=== PATIENT | female | born 1990 | race Caucasian/White ===

== ENCOUNTER 2019-07-09 14:20 | Emergency (ER) | payer SELFPAY ==
[~2019-07-09] VITALS: Ht 149.9 cm; Wt 45.4 kg
--- NOTE | 2019-07-09 14:20 | NUR ---
Pt walked in ER, pt requesting wound check of coccyx incesion site, for excess drainage and possible infection. Female front services agent accompanied female patient for (Dr Pastor).
[2019-07-09] MEDS ORDERED: NEOMY/BACITRA/POLYMYXIN B OINT UD PACKET TP ONE ×2 (14:56→15:00)
[2019-07-09] MEDS ORDERED: LIDOCAINE HCL 2% 20 ML VIAL TP ONE (15:00)
[2019-07-09 15:05] VITALS: BP 122/74
--- NOTE | 2019-07-09 15:07 | NUR ---
Patient discharged to home in stable conditon. Written and verbal after care instructions given. Patient verbalizes understanding of instructions. Pt left ER w/ steady gait.
== END 2019-07-09 15:08 | disposition home or self-care (01) ==
LOC: ER 14:20
PROC: 0HQ8XZZ Repair Buttock Skin, External Approach (ICD-10-PCS; principal; 2019-07-09)
DX: T81.31XA Disruption of external operation (surgical) wound, not elsewhere classified, initial encounter (principal)
CPT/HCPCS: A4663; J2001